=== PATIENT | female | born 1960 | race Caucasian/White ===

== ENCOUNTER → 2016-06-11 | Outpatient (CLI) | payer BC, OTHER ==
[~2016-06-11] MED LIST: AUGMENTIN 875875 MG PO; HERBAL ENERGY1 EACH; LORATADINE; SYNTHROID; ZOCOR
== END ==
LOC: ULTRA 01:16 → RAD 01:16
DX: R92.2 Inconclusive mammogram (principal); N63 Unspecified lump in breast